=== PATIENT | female | born 1965 | race Asian ===

== ENCOUNTER → 2020-08-05 11:48 | Outpatient (CLI) | payer OTHER, SELFPAY ==
--- NOTE | 2020-08-05 | DI.RAD.S_ITS ---
PROCEDURE: XR LUMBAR SPINE 2-3V INDICATIONS: LUMBAR RADICULOPATHY TECHNIQUE: 3 views of the lumbar spine were acquired. COMPARISON: None. FINDINGS: Bones: 5 [id number] vertebrae are present. There is normal bony alignment. No vertebral body compression fractures. No suspicious bony lesions. Soft tissues: Overlying bowel gas pattern is normal. No suspicious soft tissue calcifications. IMPRESSION: A mild degree of degenerative disc disease is present at L5-S1, and facet osteoarthritis is prominent at L4-5 and especially L5-S1. A small degree of grade 1 anterolisthesis of L5 on S1 is present as result. No trauma. Dictated by: Willie Escalante M.D. on 08/05/2020 at 12:50 Approved by: Willie Escalante M.D. on 08/05/2020 at 12:51
== END ==
PROVIDERS: Family Provider Physician Assistant; PCP Family Medicine; Referring Provider Family Medicine; Visit Provider Family Medicine
DX: M47.26 Other spondylosis with radiculopathy, lumbar region (principal); M47.27 Other spondylosis with radiculopathy, lumbosacral region; M51.17 Intervertebral disc disorders with radiculopathy, lumbosacral region; M43.17 Spondylolisthesis, lumbosacral region
CPT/HCPCS: 72100

== ENCOUNTER 2021-09-06 22:27 | Emergency (ER) | payer OTHER, SELFPAY ==
[2021-09-06 22:35] VITALS: BP 180/111; PULSE 110; RESP 15; TEMP 37.3; O2SAT 98; BMI 22.4
[2021-09-06] MEDS: LIDO 1%/SOD BICARB 8.4% (10ML) 10 ML SYRINGE INJ (22:37)
--- NOTE | 2021-09-06 22:53 | ED_ITS ---
HPI - Wound/Laceration General Chief Complaint: Wound/Laceration Stated Complaint: lt wrist cut Time Seen by Provider: 09/06/21 22:34 Source: patient Mode of arrival: Ambulatory History of Present Illness HPI narrative: 55-year-old female daily smoker presents with family and a chief complaint of a work related laceration on the volar surface of her left forearm. 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 There is minimal pain and some bleeding. She denies any numbness, tingling or weakness of her hand or fingers. She states she is unable to take tetanus. She denies any chest pain or shortness of breath. She is not dizzy nor weak or lightheaded. Related Data Home Medications Medication Instructions Recorded Confirmed meloxicam 7.5 mg tablet (Mobic) 7.5 mg PO BIDCC #0 08/21/11 tizanidine 4 mg tablet 4 mg PO Q6 #0 08/21/11 Allergies Allergy/AdvReac Type Severity Reaction Status Date / Time No Known Drug Allergies Allergy Verified 09/06/21 22:39 Review of Systems Review of Systems Narrative: GENERAL: Denies chills, fatigue, malaise, fever, sweats. HEENT: Denies sinus pain, ear pain, sore throat, difficulty swallowing, dizziness. RESPIRATORY: Denies dyspnea, cough, wheezing, hemoptysis, sputum. CARDIOVASCULAR: Denies chest pain, palpitations, orthopnea, edema, GASTROINTESTINAL: Denies nausea, vomiting, abdominal pain, diarrhea, consti pation, melena. : Denies dysuria, frequency, incontinence, hematuria, urinary retention. MUSCULOSKELETAL: denies weakness, joint pain, or bony pain SKIN: See HPI NEUROLOGIC: Denies weakness, headache, numbness, change in speech, confusion, seizures, incoordination. PSYCHIATRIC: No concerning psychosocial issues. 12 point review of systems is negative except for those stated above Patient History Social History Smoking Status: Current every day smoker Smoking Status: Current every day smoker alcohol intake frequency: a few times a month Substance Use Type: does not use Exam Narrative Exam Narrative: GEN: AOx3 and in mild distress EYES: Pupils are equal, round, and reactive to light and accommodation. Extraoccular muscles are intact bilaterally. There is no subconjunctival hemorrhage or exudate. CHEST: Lungs are clear to auscultation bilaterally and free of wheezes, rales, or rhonchi. Heart rate is regular rhythm, there are no murmurs, clicks, rubs, or gallops. There is no chest wall tenderness. ABD: Abdomen is soft and nontender. There is no guarding or rebound. Bowel sounds are normal in all 4 quadrants. There is no mass or organomegaly. EXT: Full painless ROM of all extremities with no loss of sensation or strength. SKIN: 2cm deep laceration over volar forearm. Minimal active bleeding. No foreign body, no tendon injury obviously noted or suspected. Compartments soft. Cap refill in tact. N/V in tact. Warm, pink, and dry. No erythema or rash Initial Vital Signs Initial Vital Signs: Vital Signs Temperature 99.1 F 09/06/21 22:35 Pulse Rate 110 H 09/06/21 22:35 Respiratory Rate 15 09/06/21 22:35 Blood Pressure 180/111 H 09/06/21 22:35 Pulse Oximetry 98 09/06/21 22:35 Procedures Laceration Repair Laceration 1: Site: upper extremity Side (If applicable): left Size (cm): 2 Description: linear and clean Depth: simple, single layer Local Anesthetic: lidocaine 1% and with bicarb Amount of anesthesia used (mL): 4 Pre-repair: wound explored, irrigated extensively and deep structures intact Skin layer closed with: nylon Size (cm): 4-0 Number of sutures: 4 Technique: simple, interrupted Course Orders Ordered: Discontinued Medications Lidocaine/Sodium Bicarbonate (Lido 1%/Sod Bicarb 8.4% (10ml) 10 Ml Syringe) 10 ml INJ NOW ONE Stop: 09/06/21 22:35 Last Admin: 09/06/21 22:37 Dose: 10 ml Documented by: LINDSEY Vital Signs Vital signs: Vital Signs - 8 hr 09/06/21 22:35 Temperature 99.1 F Pulse Rate 110 H Respiratory Rate 15 Blood Pressure 180/111 H Pulse Oximetry 98 Discharge Plan Departure Patient Disposition: Home Clinical Impression: Laceration of forearm Instructions: DI for Laceration Repair -- Simple Activity Restrictions/Additional Instructions: Please keep the wound clean and dry to the best of your ability. Please monitor for signs of infection such as redness to the skin or increasing pain. Have the sutures/aidan removed by your doctor in about 7 days. If you are unable to get into your doctor, we would be happy to remove the sutures/aidan in that same timeframe. Prescriptions: No Action tizanidine 4 MG tablet 4 mg PO Q6 Qty: 0 0RF meloxicam [Mobic] 7.5 MG tablet 7.5 mg PO BIDCC Qty: 0 0RF Referrals: Georgette Valenzuela MD [Primary Care Provider] - Stand Alone Forms: Work Release Note
[2021-09-06 23:00] VITALS: BP 143/102; PULSE 97; RESP 15; O2SAT 98
== END 2021-09-06 23:00 | disposition home or self-care (01) ==
PROVIDERS: Emergency Provider Emergency Medicine; Family Provider Physician Assistant; PCP Family Medicine
DX: S51.812A Laceration without foreign body of left forearm, initial encounter (principal); W26.8XXA Contact with other sharp object(s), not elsewhere classified, initial encounter; Y99.0 Civilian activity done for income or pay
CPT/HCPCS: 12001; 99283

== ENCOUNTER → 2022-06-29 11:40 | Outpatient (CLI) | payer OTHER, SELFPAY ==
--- NOTE | 2022-06-29 | DI.RAD.S_ITS ---
PROCEDURE: XR CHEST 2V INDICATIONS: COUGH TECHNIQUE: 2 views of the chest were acquired. COMPARISON: [facility], , CHEST 2 VIEW, 09/28/2011, 9:55. FINDINGS: Surgical changes and devices: None. Lungs and pleura: Lungs are clear. No pleural effusions or pneumothorax. Mediastinum: Mediastinal contours are normal. Heart size is normal. Bones and chest wall: No suspicious bony abnormalities. Soft tissues appear unremarkable. IMPRESSION: No acute cardiopulmonary abnormality. Approved by: Raza Delgado M.D. on 06/29/2022 at 13:19
== END ==
PROVIDERS: Family Provider Physician Assistant; PCP Family Medicine; Referring Provider Family Medicine; Visit Provider Family Medicine
DX: R05.9 Cough, unspecified (principal)
CPT/HCPCS: 71046

== ENCOUNTER → 2022-11-12 10:16 | Outpatient (CLI) | payer OTHER, SELFPAY ==
--- NOTE | 2022-11-12 | DI.RAD.S_ITS ---
PROCEDURE: XR HAND RT MIN 3V INDICATIONS: right hand osteoarthritis TECHNIQUE: 3 views of the hand(s) acquired. COMPARISON: None. FINDINGS: Bones: No fractures or dislocations. Moderate to severe osteoarthritic changes are noted throughout right hand and wrist joints most notably involving interphalangeal joints. There are features suggestive of erosive osteoarthritis in 2nd through 5th DIP joints. Carpal bones are normally aligned. No suspicious bony lesions. Soft tissues: No suspicious soft tissue calcifications. 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 No fracture or dislocation. Dictated by: Ag Winters M.D. on 11/12/2022 at 12:03 Approved by: Ag Winters M.D. on 11/12/2022 at 12:08
== END ==
PROVIDERS: Family Provider Physician Assistant; PCP Family Medicine; Referring Provider Family Medicine; Visit Provider Family Medicine
DX: M19.041 Primary osteoarthritis, right hand (principal)
CPT/HCPCS: 73130

== ENCOUNTER → 2023-09-26 09:48 | Outpatient (CLI) | payer OTHER, SELFPAY ==
[2023-09-26 10:37] LABS: Influenza A - CEPHEID Flu A NEGATIVE (NEGATIVE); Influenza B - CEPHEID Flu B NEGATIVE (NEGATIVE); Respiratory Syncytial Virus Negative (Negative)
[2023-09-26 10:49] LABS: COVID-19 CEPHEID 4-PLEX PCR Negative (Negative)
== END ==
PROVIDERS: Family Provider Physician Assistant; PCP Family Medicine; Visit Provider Physician Assistant
DX: R05.9 Cough, unspecified (principal)
CPT/HCPCS: 0241U

== ENCOUNTER → 2024-09-25 11:13 | Outpatient (CLI) | payer OTHER, SELFPAY ==
--- NOTE | 2024-09-25 11:16 | DI.RAD.S_ITS ---
PROCEDURE: XR LUMBAR SPINE 2-3V INDICATIONS: BACK PAIN TECHNIQUE: 3 views of the lumbar spine were acquired. COMPARISON: [facility], CR, XR LUMBAR SPINE 2-3V, 08/05/2020, 11:52. FINDINGS: Bones: 5 [id number] vertebrae are present. Grade 1 anterolisthesis of L4 on L5 measures 0.6 cm. There is otherwise normal bony alignment. Moderate L4-L5 and L5-S1 disc height loss with adjacent endplate sclerosis and anterior osteophytosis. No vertebral body compression fractures. No suspicious bony lesions. Soft tissues: Overlying bowel gas pattern is normal. No suspicious soft tissue calcifications. IMPRESSION: Spondylosis and spondylolisthesis of the lower lumbar spine. No evidence of acute osseous abnormality. Dictated by: Froylan Kaplan M.D. on 09/26/2024 at 0:02 Approved by: Froylan Kaplan M.D. on 09/26/2024 at 1:04
== END ==
PROVIDERS: Family Provider Physician Assistant; PCP Family Medicine; Referring Provider Family Medicine; Visit Provider Family Medicine
DX: M47.816 Spondylosis without myelopathy or radiculopathy, lumbar region (principal); M43.16 Spondylolisthesis, lumbar region; M54.50 Low back pain, unspecified; G89.29 Other chronic pain
CPT/HCPCS: 72100